=== PATIENT | female | born 1985 | race Caucasian/White ===

== ENCOUNTER 2016-05-07 03:23 | Emergency (ER) | payer MEDICAID, OTHER ==
[2016-05-07] MEDS ORDERED: diphenhydrAMINE HCl 50 MG/ML 1 ML VIAL ONE (04:01)
[2016-05-07] MEDS ORDERED: methylPREDNISolone Sod Succ/PF 125 MG/2 ML VIAL ONE (04:01)
[2016-05-07] MEDS ORDERED: Famotidine 20 MG TAB ONE (04:01)
[2016-05-07] MEDS ORDERED: Famotidine In NaCl 20 mg/50 ml Premix Bag ONE ×2 (04:02→04:04)
[2016-05-07 04:06] LABS: #Basophils 0.1 thou/uL (0.0-0.2); #Eosinphils 0.2 thou/uL (0.0-0.7); #Lymphocytes 2.2 thou/uL (1.20-3.40); #Monocytes 0.7 thou/uL (0.11-0.59); #Neutrophils 4.9 thou/uL (1.40-6.50); %Basophils 1.2 % (0.0-1.0); %Eosinophils 2.5 % (0.0-10.0); Red Blood Cell (RBC) Count 4.32 mill/uL (4.20-5.40); White Blood Cell (WBC) Count 8.1 thou/uL (4.8-10.8)
[2016-05-07 04:20] LABS: Anion Gap 12 mmol/L (10-20); BUN (Urea Nitrogen) 18 mg/dL (7.0-18.7); Calc. Creatinine Clearance 0 mL/min (70-130); Calcium 9.4 mg/dL (7.8-10.44); Carbon Dioxide 26 mmol/L (22-29); Chloride 105 mmol/L (98-107); Estimated GFR-MDRD Greater than 90
--- NOTE | 2016-05-07 07:22 | ERRECORD ---
[facility] EMERGENCY RECORD PAST MEDICAL HISTORY (03:42 KSPL) MEDICAL HISTORY: asthma, HTN. FEMALE SURGICAL HISTORY: Surgical history of section, . PSYCHIATRIC HISTORY: No previous psychiatric history, No previous psychiatric history. SOCIAL HISTORY: Patient denies alcohol use, Patient denies drug use, Patient has no smoking history, Patient denies alcohol use, Patient denies drug use, Patient is a former tobacco user, smoked cigarettes, Patient quit smoking less than 10 years ago, Lives at home, with family. KNOWN ALLERGIES codeine sulfate latex gloves Penicillins CURRENT MEDICATIONS (03:33 KSPL) lisinopril: TABLET : Strength - 10 mg : ORAL Patient Dose: once a day.per pt. VITAL SIGNS VITAL SIGNS: BP: 131/84, Pulse: 96, Resp: 18 (Non-Labored), Temp: 98 (Oral), Pain: 0, O2 sat: 100 on Room Air, Time: 05/07/2016 03:31. (03:31 KSPL) BP: 113/57, Pulse: 71, Resp: 17 (Non-Labored), Pain: 0, O2 sat: 97 on Room Air, Time: 05/07/2016 04:31. (04:31 KSPL) BP: 94/46, Pulse: 67, Resp: 15 (Non-Labored), Pain: 0, O2 sat: 98 on Room Air, Time: 05/07/2016 05:15. (05:15 KSPL) BP: 91/45, Pulse: 66, Resp: 16 (Non-Labored), Pain: resting, O2 sat: 99 on Room Air, Time: 05/07/2016 06:00. (06:00 KSPL) BP: 116/63, Pulse: 68, Resp: 15, Pain: 0, O2 sat: 98 on Room Air, Time: 05/07/2016 06:45. (06:45 KMOR) BP: 113/69, Pulse: 77, Resp: 19 (Non-Labored), Pain: 0, O2 sat: 96 on Room Air, Time: 05/07/2016 07:00. (07:00 KSPL) Temp: 97.9 (Oral), Time: 05/07/2016 07:10. (07:10 KMOR) MEDICATION ADMINISTRATION SUMMARY Drug Name: famotidine (PF), Dose Ordered: 20 mg, Route: IV Push, Status: Given, Time: 04:20 05/07/2016, Drug Name: methylPREDNISolone sodium succ injection, Dose Ordered: 125 mg, Route: IV Push, Status: Given, Time: 04:19 05/07/2016, Drug Name: diphenhydrAMINE injection, Dose Ordered: 25 mg, Route: IV Push, Status: Given, Time: 04:18 05/07/2016, Detailed record available in Medication Service section. PROBLEM LIST No recorded problems &a-1R&a+25V*p+0X*[id number]*c202B*c15G*c2P*p-0X&a-25V&a+1R Name: Emmie Reece : 1985 F30 MedRec: [id number] AcctNum: [id number] Prepared: MonMay 10, 2016 09:28 by Interface Page [address] [facility] EMERGENCY RECORD DIAGNOSIS (07:08 MBRI) FINAL: PRIMARY: sensation of swelling in the throat, ADDITIONAL: GERD WITH ESOPHAGITIS. PRESCRIPTION (07:07 MBRI) Benadryl oral: CAPSULE (HARD, SOFT, ETC.) : 25 mg : ORAL : Quantity: 1-2 Unit: tab(s) Route: ORAL Schedule: every 6 hours PRN Dispense: 30 May substitute. Refills: No Refills . NOTES: No refills. predniSONE oral: TABLET : 20 mg : ORAL : Quantity: 3 Unit: tab(s) Route: ORAL Schedule: once a day Dispense: 12 May substitute. Refills: No Refills . NOTES: ^s=No refills No refills. Zantac oral: TABLET : 150 mg : ORAL : Quantity: 1 Unit: tab(s) Route: ORAL Schedule: once a day Dispense: 30 May substitute. Refills: No Refills . NOTES: ^s=^s=No refills No refills No refills. DISPOSITION PATIENT: Disposition Type: Discharge, Disposition: *Discharge Home, Condition: Improved. (07:04 MBRI) Patient left the department. (07:16 MERCEDEZ) Rios: KMOR=CAESAR Lopez, Jess KSPL=CAESAR Walker, Jennifer MBRI=DO Kendrick Matthew &a-1R&a+25V*p+0X*z9220H*c202B*c15G*c2P*p-0X&a-25V&a+1R Name: Emmie Reece : 1985 F30 MedRec: [id number] AcctNum: [id number] Prepared: Sukhdev May 10, 2016 09:28 by Interface Page 2 of 2 pMD MTDD
--- NOTE | 2016-05-07 07:28 | PICIS ---
[facility] EMERGENCY RECORD TRIAGE ([facility] May 07, 2016 03:32 KSPL) TRIAGE NOTES: pt states feels like something is stuck in her throat, hard to breathe when she lays down and "just feels like something isn't right" started this evening. C/O heart burn x 3 months ago. ([facility] May 07, 2016 03:32 KSPL) PATIENT: NAME: Emmie Reece, AGE: 30, GENDER: female, : [facility] 1985, TIME OF GREET: [facility] May 07, 2016 03:23, PREFERRED LANGUAGE: Danish, ETHNICITY: Not or , ECODE BILLING MAP: [facility], SSN: [id number], Zip Code: [address], KG WEIGHT: 81.19 (est.), PHONE: , , , PERSON ID: [id number], PAYMENT: [facility] Medicaid, PCP: NAV Mayorga Kimberly. ([facility] May 07, 2016 03:32 KSPL) COMPLAINT: Throat Pain. ([facility] May 07, 2016 03:32 KSPL) ADMISSION: URGENCY: 3 Urgent, ADMISSION SOURCE: Home, TRANSPORT: CAR, BED: TRIAGE. ([facility] May 07, 2016 03:32 KSPL) IMMUNIZATIONS: Flu vaccine not up to date, Tetanus immunization up to date, Date of immunization: 2016. (03:42 KSPL) SIRS SCORING: Heart Rate 55-109 (0), Temp range 96.8-101.1 (0), respiratory rate 12-24 (0), Mental Status altered: no (0), Infection or Suspected Infection: No. (03:42 KSPL) TRIAGE SCREENING: Patient denies suicidal ideation, Patient denies presence of domestic violence. (03:42 KSPL) LMP: Last menstrual period: 04/12/16. (03:42 KSPL) TREATMENTS IN PROGRESS: Treatments given Prehospital: none. (03:42 KSPL) PROVIDERS: TRIAGE NURSE: Jennifer Walker RN. ([facility] May 07, 2016 03:32 KSPL) VITAL SIGNS: BP 131/84, Pulse 96, Resp 18, (Non-Labored), Temp 98, (Oral), Pain 0, O2 Sat 100, on Room Air, Time 05/07/2016 03:31. (03:31 KSPL) PREVIOUS VISIT ALLERGIES: codeine sulfate, latex gloves, Penicillins. (Sat May 07, 2016 03:32 KSPL) codeine sulfate, latex gloves, Penicillins. (03:42 KSPL) KNOWN ALLERGIES codeine sulfate latex gloves Penicillins CURRENT MEDICATIONS (03:33 KSPL) lisinopril: TABLET : Strength - 10 mg : ORAL Patient Dose: once a day.per pt. VITAL SIGNS VITAL SIGNS: BP: 131/84, Pulse: 96, Resp: 18 (Non-Labored), Temp: 98 (Oral), Pain: 0, O2 sat: 100 on Room Air, Time: 05/07/2016 03:31. (03:31 KSPL) BP: 113/57, Pulse: 71, Resp: 17 (Non-Labored), Pain: 0, O2 sat: 97 on &a-1R&a+25V*p+0X*j8874L*c202B*c15G*c2P*p-0X&a-25V&a+1R Name: Emmie Reece : 1985 F30 MedRec: [id number] AcctNum: [id number] Prepared: Sukhdev May 10, 2016 09:28 by Interface Page 1 of 9 pMD [facility] EMERGENCY RECORD Room Air, Time: 05/07/2016 04:31. (04:31 KSPL) BP: 94/46, Pulse: 67, Resp: 15 (Non-Labored), Pain: 0, O2 sat: 98 on Room Air, Time: 05/07/2016 05:15. (05:15 KSPL) BP: 91/45, Pulse: 66, Resp: 16 (Non-Labored), Pain: resting, O2 sat: 99 on Room Air, Time: 05/07/2016 06:00. (06:00 KSPL) BP: 116/63, Pulse: 68, Resp: 15, Pain: 0, O2 sat: 98 on Room Air, Time: 05/07/2016 06:45. (06:45 KMOR) BP: 113/69, Pulse: 77, Resp: 19 (Non-Labored), Pain: 0, O2 sat: 96 on Room Air, Time: 05/07/2016 07:00. (07:00 KSPL) Temp: 97.9 (Oral), Time: 05/07/2016 07:10. (07:10 KMOR) NURSING ASSESSMENT: RESPIRATORY /CHEST (03:35 KSPL) CONSTITUTIONAL: Complex assessment performed, Patient arrives ambulatory, Gait steady, History obtained from patient, Patient appears comfortable, Patient cooperative, Patient alert, Oriented to person, place and time, Skin warm, Skin dry, Skin normal in color, Mucous membranes pink, Mucous membranes moist, Patient is well-groomed, Patient complains of throat pain and SOB. PAIN: pressure pain, Patient rates pain as 0 out of 10, pt states she feels like "someone is choking me". RESPIRATORY/CHEST: Breath sounds clear, Respiratory assessment findings include respiratory effort easy, Respirations regular, Conversing normally, Neck and chest exam findings include trachea midline, Chest expansion equal, Chest movement symmetrical, no signs of distress, no cyanosis, no jugular vein distension, no associated cough noted, no associated fever. ENT: Mouth and throat assessment findings include mouth inspection normal, Uvula normal, Tonsils normal, Mucous membranes pink, and moist, Able to swallow, Speech normal, Notes: able to swallow but says when she swallows "it feels like it wants to come back up". SAFETY: Side rails up, Cart/Stretcher in lowest position, Family at bedside, Call light within reach, Hospital ID band on, Patient in view of the nursing station. NURSING PROCEDURE: TURNER MACHINE OPERATOR (03:33 KSPL) PATIENT IDENTIFIER: Patient actively involved in identification process, Patient's identity verified by patient stating name, Patient's identity verified by patient stating date. TURNER MACHINE OPERATOR: Cardiac monitoring indicated for facilitate dx, Patient placed on rn cardiac rehab, Heart rate: 96, Patient placed on non-invasive blood pressure monitor, with disposable blood pressure cuff applied, Patient placed on continuous pulse oximetry, Adult/pediatric oxisensor applied. SAFETY: Side rails up, Cart/Stretcher in lowest position, Call light within reach, Hospital ID band on, Patient in view of the nursing station. NURSING PROCEDURE: DISCHARGE NOTE (07:14 KSPL) DISCHARGE: Patient discharged to home, ambulating without &a-1R&a+25V*p+0X*r8622E*c202B*c15G*c2P*p-0X&a-25V&a+1R Name: Emmie Reece : 1985 F30 MedRec: [id number] AcctNum: [id number] Prepared: MonMay 10, 2016 09:28 by Interface Page 2 of 9 pMD [facility] EMERGENCY RECORD assistance, family driving, accompanied by //partner, Summary of Care printed/ provided, Patient requested and was provided an electronic copy of Discharge Instructions, Transition record given to patient, Discharge instructions given to patient, Simple or moderate discharge teaching performed, Prescriptions given and instructions on side effects given, Name of prescription(s) given: zantac, prednisone, benadryl, Medication reconciliation form given, Above person(s) verbalized understanding of discharge instructions and follow-up care, Forensic Manager used, Patient treated and evaluated by physician. BELONGINGS: Belongings and valuables with patient at time of discharge include:, Belongings remain with patient, Valuables remain with patient. SAFETY: Side rails up, Cart/Stretcher in lowest position, Call light within reach, Hospital ID band on, Patient in view of the nursing station. NURSING PROCEDURE: IV PATIENT IDENITIFIER: Patient actively involved in identification process, Patient's identity verified by patient stating name, Patient's identity verified by patient stating date. (03:45 CHOB) IV SITE 1: IV therapy indicated for hydration, IV therapy indicated for medication administration, IV established, to the left antecubital, using a 20 gauge catheter, in one attempt, Saline lock established, Flushed with normal saline (mls): 10, Labs drawn at time of placement, labeled in the presence of the patient and sent to lab. (03:45 CHOB) FOLLOW-UP SITE 1: After procedure, sterile transparent dressing applied. (03:45 CHOB) IV discontinued, due to patient being discharged, catheter intact. (07:10 KMOR) NOTES: Patient tolerated procedure well. (07:10 KMOR) SAFETY: Side rails up, Cart/Stretcher in lowest position, Call light within reach, Hospital ID band on. (03:45 CHOB) NURSING PROCEDURE: NURSE NOTES NURSES NOTES: Notes: ERMD at bedside. (03:36 KSPL) Notes: ERMD at bedside, wants to observe pt. awaiting discharge orders. (05:20 KSPL) Notes: Pt resting quietly with eyes closed, no s/sx of distress noted, respirations even and non labored. Call light in reach. (06:17 KSPL) Notes: Patient resting back in bed, RR Even and unlabored. NAD. (06:55 KMOR) Notes: Dr. Kendrick in to review results with patient. (06:58 KMOR) NURSING PROCEDURE: TRANSPORT TO TESTS PATIENT IDENTIFIER: Patient actively involved in identification &a-1R&a+25V*p+0X*y3425B*c202B*c15G*c2P*p-0X&a-25V&a+1R Name: Emmie Reece : 1985 F30 MedRec: [id number] AcctNum: [id number] Prepared: MonMay 10, 2016 09:28 by Interface Page 3 of 9 pMD [facility] EMERGENCY RECORD process, Patient's identity verified by patient stating name, Patient's identity verified by patient stating date. (03:54 KSPL) TRANSPORT TO TESTS: Transport indicated to facilitate diagnosis, Patient transported to x-ray, ambulatory, Accompanied by x-ray donor center technician. (03:54 KSPL) FOLLOW-UP: After procedure, patient returned to emergency department, Notes: pt back in bed and hooked back up to monitor. (03:58 KSPL) NURSING PROCEDURE: URINE COLLECTION (03:40 CHOB) PATIENT IDENTIFIER: Patient actively involved in identification process, Patient's identity verified by patient stating name, Patient's identity verified by patient stating date. URINE COLLECTION FEMALE: Urine collected by mid-stream clean catch, urine yellow in color, and clear. SAFETY: Side rails up, Cart/Stretcher in lowest position, Call light within reach, Hospital ID band on. ORDER DETAILS Order Name: Basic Metabolic Panel, Status: Active, Time: 03:39 05/07/2016, User: CALLY, - Ordered for: DO Kendrick Matthew, - Entered by: DO Kendrick Matthew - Sat May 07, 2016 03:39, - Quantity: 1, Order Name: CBC with Differential, Status: Active, Time: 03:39 05/07/2016, User: CALLY, - Ordered for: DO Kendrick Matthew, - Entered by: DO Kendrick Matthew - Angel May 07, 2016 03:39, - Quantity: 1, Order Name: Test, Serum (BHCG), Status: Canceled, Time: 04:09 05/07/2016, User: System, - Ordered for: DO Kendrick Matthew, - Entered by: DO Kendrick Matthew - Angel May 07, 2016 03:39, - Reason for Cancel: dr request, - Quantity: 1, Order Name: Test, Urine (BHCG), Status: Active, Time: 03:55 05/07/2016, User: DARSHANA, - Ordered for: DO Kendrick Matthew, - Entered by: CAESAR Walker Kristi - Sat May 07, 2016 03:55, - Quantity: 1, Order Name: SALINE LOCK, Status: Done, Time: 03:52 05/07/2016, User: CHOB, - Ordered for: DO Kendrick Matthew, - Entered by: DO Kendrick Matthew - Angel May 07, 2016 03:39, - Quantity: 1, Order Name: XR Neck Soft Tissue, Status: Active, Time: 03:41 05/07/2016, User: CALLY, - Ordered for: DO Kendrick Matthew, &a-1R&a+25V*p+0X*t3913K*c202B*c15G*c2P*p-0X&a-25V&a+1R Name: Emmie Reece : 1985 F30 MedRec: [id number] AcctNum: [id number] Prepared: MonMay 10, 2016 09:28 by Interface Page 4 of 9 pMD [facility] EMERGENCY RECORD - Entered by: DO Kendrick Matthew - Sat May 07, 2016 03:41, - Quantity: 1. MEDICATION ADMINISTRATION SUMMARY Drug Name: famotidine (PF), Dose Ordered: 20 mg, Route: IV Push, Status: Given, Time: 04:20 05/07/2016, Drug Name: methylPREDNISolone sodium succ injection, Dose Ordered: 125 mg, Route: IV Push, Status: Given, Time: 04:19 05/07/2016, Drug Name: diphenhydrAMINE injection, Dose Ordered: 25 mg, Route: IV Push, Status: Given, Time: 04:18 05/07/2016, Detailed record available in Medication Service section. MEDICATION SERVICE diphenhydrAMINE injection: Order: diphenhydrAMINE injection (diphenhydramine HCl) - Dose: 25 mg : IV Push Ordered by: Jameson Kendrick DO Entered by: Jameson Kendrick DO Sat May 07, 2016 03:42 , Acknowledged by: Jennifer Walker RN Sat May 07, 2016 03:56 Documented as given by: Jennifer Walker RN Sat May 07, 2016 04:18 Patient, Medication, Dose, Route and Time verified prior to administration. Amount given: 25 mg, IV SITE #1 IVP, initial medication, Slowly, Awake and alert- acceptable, Connections checked prior to administration, Line traced prior to administration, Catheter placement confirmed via flush prior to administration, IV site without signs or symptoms of infiltration during medication administration, No swelling during administration, No drainage during administration, IV flushed after administration, Correct patient, time, route, dose and medication confirmed prior to administration, Patient advised of actions and side-effects prior to administration, Allergies confirmed and medications reviewed prior to administration, Patient in position of comfort, Side rails up, Cart in lowest position, Call light in reach. : Follow Up : Response assessment performed, No signs or symptoms of allergic reaction noted, _IV SITE #1:_, Advised not to ambulate without assistance, Patient in position of comfort, Side rails up, Cart in lowest position, Call light in reach, Pt laying supine in bed with HOB elevated slightly, pt resting quietly with eyes closed, respirations even and non labored. No s/sx of distress noted. (05:09 KSPL) famotidine (PF): Order: famotidine (PF) (famotidine/preservative free) - Dose: 20 mg : IV Push Ordered by: Jameson Kendrick DO Entered by: Jameson Kendrick DO Sat May 07, 2016 03:42 , Acknowledged by: Jennifer Walker RN Sat May 07, 2016 03:56. : Follow Up : Response assessment performed, No signs or symptoms of allergic reaction noted, Site inspection shows, No swelling at administration site, No drainage at administration site, No bleeding at site, No bruising noted at site, _IV SITE #1:_, &a-1R&a+25V*p+0X*z3908R*c202B*c15G*c2P*p-0X&a-25V&a+1R Name: Emmie Reece : 1985 F30 MedRec: [id number] AcctNum: [id number] Prepared: MonMay 10, 2016 09:28 by Interface Page 5 of 9 pMD [facility] EMERGENCY RECORD Medication infusion discontinued, on Sat May 07, 2016 04:48, 30 minutes, ., Total amount infused: 50 mls, IV Line flushed after administration, Advised not to ambulate without assistance, Patient in position of comfort, Side rails up, Cart in lowest position, Call light in reach, IVPB given per Dr. Kendrick verbal order, 20mg Famotidine premixed in 50ml iso-osmotic bag. (04:48 KSPL) famotidine (PF): Order: famotidine (PF) (famotidine/preservative free) - Dose: 20 mg : IV Push Ordered by: Jameson Kendrick DO Entered by: Jameson Kendrick DO [facility] May 07, 2016 03:42 , Acknowledged by: Jennifer Walker RN [facility] May 07, 2016 03:57 Documented as given by: Jennifer Walker RN [facility] May 07, 2016 04:20 Patient, Medication, Dose, Route and Time verified prior to administration. Amount given: 20 mg, IV SITE #1 IVPB or drip, subsequent infusion, Premixed, via pump tubing, on an IV pump, at 100 ml/hr, Connections checked prior to administration, Line traced prior to administration, Catheter placement confirmed via flush prior to administration, IV site without signs or symptoms of infiltration during medication administration, No swelling during administration, No drainage during administration, IV flushed after administration, Correct patient, time, route, dose and medication confirmed prior to administration, Patient advised of actions and side-effects prior to administration, Allergies confirmed and medications reviewed prior to administration, Patient in position of comfort, Side rails up, Cart in lowest position, Call light in reach, IVPB given after verbal order from Dr. Kendrick received, due to 20mg Pepcid IVP unavailable. methylPREDNISolone sodium succ injection: Order: methylPREDNISolone sodium succ injection (methylprednisolone sod succ) - Dose: 125 mg : IV Push Ordered by: Jameson Kendrick DO Entered by: Jameson Kendrick DO Sat May 07, 2016 03:42 , Acknowledged by: Jennifer Walker RN Sat May 07, 2016 03:56 Documented as given by: Jennifer Walker RN Sat May 07, 2016 04:19 Patient, Medication, Dose, Route and Time verified prior to administration. Amount given: 125 mg, IV SITE #1 IVP, subsequent different medication, Slowly, Connections checked prior to administration, Line traced prior to administration, Catheter placement confirmed via flush prior to administration, IV site without signs or symptoms of infiltration during medication administration, No swelling during administration, No drainage during administration, IV flushed after administration, Correct patient, time, route, dose and medication confirmed prior to administration, Patient advised of actions and side-effects prior to administration, Allergies confirmed and medications reviewed prior to administration, Patient in position of comfort, Side rails up, Cart in lowest position, Call light in reach. : Follow Up : Response assessment performed, No signs or symptoms of allergic reaction noted, _IV SITE #1:_, Advised not to ambulate without assistance, Patient in position of comfort, Side &a-1R&a+25V*p+0X*q0172Y*c202B*c15G*c2P*p-0X&a-25V&a+1R Name: Emmie Reece : 1985 F30 MedRec: [id number] AcctNum: [id number] Prepared: MonMay 10, 2016 09:28 by Interface Page 6 of 9 pMD [facility] EMERGENCY RECORD rails up, Cart in lowest position, Call light in reach, pt states "the feeling in my throat feels calm, I can still feel it when I swallow, but not as bad". (05:00 KSPL) PAST MEDICAL HISTORY (03:42 KSPL) MEDICAL HISTORY: asthma, HTN. FEMALE SURGICAL HISTORY: Surgical history of section, . PSYCHIATRIC HISTORY: No previous psychiatric history, No previous psychiatric history. SOCIAL HISTORY: Patient denies alcohol use, Patient denies drug use, Patient has no smoking history, Patient denies alcohol use, Patient denies drug use, Patient is a former tobacco user, smoked cigarettes, Patient quit smoking less than 10 years ago, Lives at home, with family. EVENTS TRANSFER: Triage to Emergency Triage. ([facility] May 07, 2016 03:32 KSPL) Emergency Triage to Emergency Room -02. (03:38 CHOB) Removed from Emergency Emergency Room -02. (07:16 KMOR) PROBLEM LIST No recorded problems DIAGNOSIS (07:08 MBRI) FINAL: PRIMARY: sensation of swelling in the throat, ADDITIONAL: GERD WITH ESOPHAGITIS. DISPOSITION PATIENT: Disposition Type: Discharge, Disposition: *Discharge Home, Condition: Improved. (07:04 MBRI) Patient left the department. (07:16 KMOR) INSTRUCTION (07:08 MBRI) DISCHARGE: ESOPHAGITIS REFLUX ADULT. FOLLOWUP: [facility]org[facility], [facility], [address] [place] [id number], , Follow up with Primary Care Physician in 7 days. SPECIAL: Please return for any further issues or concerns, we would be happy to see you. We hope you feel better soon. Follow-up with your PCP Tylenol for Pain. PRESCRIPTION (07:07 MBRI) Benadryl oral: CAPSULE (HARD, SOFT, ETC.) : 25 mg : ORAL : Quantity: 1-2 Unit: tab(s) Route: ORAL Schedule: every 6 hours PRN Dispense: 30 May substitute. Refills: No Refills . &a-1R&a+25V*p+0X*z4861L*c202B*c15G*c2P*p-0X&a-25V&a+1R Name: Emmie Reece : 1985 F30 MedRec: [id number] AcctNum: [id number] Prepared: MonMay 10, 2016 09:28 by Interface Page 7 of 9 pMD [facility] EMERGENCY RECORD NOTES: No refills. predniSONE oral: TABLET : 20 mg : ORAL : Quantity: 3 Unit: tab(s) Route: ORAL Schedule: once a day Dispense: 12 May substitute. Refills: No Refills . NOTES: ^s=No refills No refills. Zantac oral: TABLET : 150 mg : ORAL : Quantity: 1 Unit: tab(s) Route: ORAL Schedule: once a day Dispense: 30 May substitute. Refills: No Refills . NOTES: ^s=^s=No refills No refills No refills. IMAGING *DISCHARGE INSTRUCTIONS RECEIPT: Image captured from scanner. (07:23 KMOR) Page 2 added. Image captured from scanner. (07:23 KMOR) MONITOR STRIPS: Image captured from scanner. (07:23 KMOR) *SUPPLY CHARGE SHEET: Image captured from scanner. (07:24 KMOR) ADMIN DIGITAL SIGNATURE: CAESAR Lopez, Jess. (07:25 KMOR) DO Kendrick Matthew. (MonMay 10, 2016 09:20 MBRI) RESULTS (05:06 MBRI) LABORATORY: Basic Metabolic Panel Collection DT: [facility] May 07, 2016 03:55, Sodium 139 mmol/L, Range (136-145), Potassium 3.9 mmol/L, Range (3.5-5.1), Chloride 105 mmol/L, Range (98-107), Carbon Dioxide 26 mmol/L, Range (22-29), Anion Gap 12 mmol/L, Range (10-20), BUN (Urea Nitrogen) 18 mg/dL, Range (7.0-18.7), Creatinine 0.74 mg/dL, Range (0.6-1.1), Estimated GFR-MDRD Greater than 90 , Reference Range for Estimated GFR: Greater than 90, mL/min/1.73 m2 NOTE: The MDRD equation has not been validated for use, with the elderly (over 70 years of age), women, patients with, serious comorbid condition or persons with extremes of body size, muscle, mass, or nutritional status. , Glucose 102 mg/dL, Range (70-105), Calcium 9.4 mg/dL, Range (7.8-10.44). CBC with Differential Collection DT: [facility] May 07, 2016 03:55, White Blood Cell (WBC) Count 8.1 thou/uL, Range (4.8-10.8), Red Blood Cell (RBC) Count 4.32 mill/uL, Range (4.20-5.40), Hemoglobin 12.9 g/dL, Range (12.0-16.0), Hematocrit 38.0 %, Range (36.0-47.0), &a-1R&a+25V*p+0X*l1447Y*c202B*c15G*c2P*p-0X&a-25V&a+1R Name: Emmie Reece : 1985 F30 MedRec: [id number] AcctNum: [id number] Prepared: MonMay 10, 2016 09:28 by Interface Page 8 of 9 pMD [facility] EMERGENCY RECORD Mean Corpuscular Volume 88.0 fl, Range (81.0-99.0), Mean Corpuscular Hemoglobin 29.8 pg, Range (27.0-31.0), Mean Corpuscular HGB CONC 33.9 g/dL, Range (32.0-36.0), RBC Distribution Width 11.6 %, Range (11.5-14.5), Platelet Count 230 thou/uL, Range (130-400), *Mean Platelet Volume 7.0 - L fL, Range (7.4-10.4), %Neutrophils 60.8 %, Range (42.0-75.0), %Lymphocytes 27.5 %, Range (21.0-51.0), %Monocytes 8.0 %, Range (0.0-10.0), %Eosinophils 2.5 %, Range (0.0-10.0), *%Basophils 1.2 - H %, Range (0.0-1.0), #Neutrophils 4.9 thou/uL, Range (1.40-6.50), #Lymphocytes 2.2 thou/uL, Range (1.20-3.40), *#Monocytes 0.7 - H thou/uL, Range (0.11-0.59), #Eosinphils 0.2 thou/uL, Range (0.0-0.7), #Basophils 0.1 thou/uL, Range (0.0-0.2). Test, Urine (BHCG) Collection DT: MonMay 07, 2016 04:00, Test - Urine (BHCG) NEGATIVE , Range (NEGATIVE), Method of sensitivity- Indeterminant: results should be repeated, after 48 hours. Positive: results may be detected as early as 4-5 days before a first missed menses. Elimination of BHCG-, Elimination following first trimester D&C: 29-44 Days , Elimination following term : 8-24 Days , Specific [place] 1.007 , Range (1.002-1.036), A dilute urine specimen may, not contain life assurance representative levels of hCG. If is still, suspected, a first morning urine specimen OR a random blood specimen should, be obtained from the patient 48-72 hours later and re-tested. , . Rios: AARON=CAESAR Nicole, Rosa NEWSOME=CAESAR Lopez, Jess GILLILAND=CAESAR Walker, Jennifer ALAMO=DO Kendrick Matthew &a-1R&a+25V*p+0X*o4349P*c202B*c15G*c2P*p-0X&a-25V&a+1R Name: Emmie Reece : 1985 F30 MedRec: [id number] AcctNum: [id number] Prepared: MonMay 10, 2016 09:28 by Interface Page 9 of 9 pMD [facility] MEDICATION RECONCILIATION You were seen in the Emergency Department on: MonMay 07, 2016 KNOWN ALLERGIES codeine sulfate latex gloves Penicillins MEDICATIONS GIVEN WHILE IN THE EMERGENCY DEPARTMENT diphenhydrAMINE injection (diphenhydramine HCl) - Dose: 25 milligram(s) : IV Push famotidine (PF) (famotidine/preservative free) - Dose: 20 milligram(s) : IV Push methylPREDNISolone sodium succ injection (methylprednisolone sod succ) - Dose: 125 milligram(s) : IV Push HOME MEDICATIONS CONTINUE PRESCRIBED lisinopril : TABLET : Strength - 10 mg : ORAL Continue as prescribed Patient had been taking: once a day. Comment: per pt. Notes from the emergency department Reviewed with patient PRESCRIPTIONS (3) Printed (3) Benadryl oral : CAPSULE (HARD, SOFT, ETC.) : 25 mg : ORAL Quantity: 1-2, Unit: tab(s), Route: ORAL, Schedule: every 6 hours PRN, Dispense: 30 predniSONE oral : TABLET : 20 mg : ORAL Quantity: 3, Unit: tab(s), Route: ORAL, Schedule: once a day, Dispense: 12 &a-1R&a+25V*p+0X*w4095E*c202B*c15G*c2P*p-0X&a-25V&a+1R Name: Clifton Reeceher : 1985 F30 MedRec: [id number] AcctNum: [id number] Prepared: MonMay 10, 2016 09:28 by Interface pMD KRISTEN
--- NOTE | 2016-05-07 08:40 | RAD ---
SOFT TISSUE NECK: DATE: 05/07/16. FINDINGS: Two views are provided in the AP and lateral projections. The soft tissues show no thickening. The epiglottis is not enlarged. There is some mild straighten ing of the cervical spine which could be due to spasm. There is a small triangular bony density seen just anterior to the superior corner of the C5 vertebr a. The anterior superior corner of C5 is slightly deformed and this density somewhat has the appear ance of a small bone spur or fragment from the vertebra that was previously . Given the sl ight deformity of the anterior superior corner of C5, that seems more likely than an actual opaque f oreign body. The soft tissues in this location do not appear swollen in any way. It seems a little more likely that this is a longstanding finding, rather than an acute one. Depending upon the aaron ent's clinical history and progress, one still may wish to refer her to an ENT physician for a direc t visualization in the area. Otherwise, the exam appears normal. IMPRESSION: 1. Loss of the normal cervical lordosis, possibly due to muscle spasm. 2. Small bony-appearing triangular density just anterior to the anterior superior corner of C5. Th e corner itself seems slightly deformed and the structure in question does resemble a small osteophy te, either ununited or avulsed. It seems more likely this than a foreign body. Further followup zhen y be needed depending upon her progress and symptoms. See discussion above. CODE T POS: HOME
== END 2016-05-07 07:14 | disposition home or self-care (01) ==
LOC: BURERS 03:23
DX: K21.0 Gastro-esophageal reflux disease with esophagitis (principal); J45.909 Unspecified asthma, uncomplicated; I10 Essential (primary) hypertension; Z87.891 Personal history of nicotine dependence; Z79.899 Other long term (current) drug therapy
CPT/HCPCS: 70360; 80048; 81025; 85025; 96365; 96375; J1200; J2930

== ENCOUNTER 2016-05-25 11:40 | Outpatient (CLI) | payer OTHER | END 2016-05-25 11:41 | disposition home or self-care (01) | LOC: HPCALD 11:40 | PROVIDERS: ATTEND Physician Assistant | DX: Z01.419 Encounter for gynecological examination (general) (routine) without abnormal findings (principal) | CPT/HCPCS: 88142; G0123 ==

== ENCOUNTER 2016-06-01 16:55 | Outpatient (CLI) | payer OTHER | END 2016-06-01 16:56 | LOC: HPCALD 16:55 | PROVIDERS: ATTEND Physician Assistant | DX: Z00.00 Encounter for general adult medical examination without abnormal findings (principal) | CPT/HCPCS: 87480; 87491; 87510; 87591; 87660 ==

== ENCOUNTER 2016-06-07 17:45 | Emergency (ER) | payer OTHER | END 2016-06-07 18:07 | disposition home or self-care (01) | LOC: BURERS 17:45 | DX: K59.00 Constipation, unspecified (principal); I10 Essential (primary) hypertension; J45.909 Unspecified asthma, uncomplicated; Z87.891 Personal history of nicotine dependence; Z79.899 Other long term (current) drug therapy | CPT/HCPCS: 99283 ==

== ENCOUNTER 2016-06-23 09:37 | Outpatient (CLI) | payer OTHER ==
[2016-06-23 11:51] LABS: ALT (SGPT) 13 U/L (0-55); AST (SGOT) 14 U/L (5-34); Albumin 4.4 g/dL (3.5-5.0); Alkaline Phosphatase 77 U/L (40-150); Bilirubin, Direct 0.3 mg/dL (0.1-0.3); Bilirubin, Total 0.9 mg/dL (0.2-1.2); Lipase 15 U/L (8-78); Protein, Total 7.4 g/dL (6.0-8.3)
== END 2016-06-23 09:38 | disposition home or self-care (01) ==
LOC: HPCALD 09:37
PROVIDERS: ATTEND Physician Assistant
DX: R10.11 Right upper quadrant pain (principal)
CPT/HCPCS: 36415; 80076; 83690

== ENCOUNTER 2016-06-24 08:29 | Outpatient (CLI) | payer OTHER ==
--- NOTE | 2016-06-24 21:14 | ULT ---
ABDOMINAL ULTRASOUND 06/24/16 Ultrasonography of the abdomen was performed for evaluation of right upper quadrant pain. The liver is mildly enlarged, measuring 17.3 cm in oblique sagittal length. Internally, no masses or dilated ducts were seen. The gallbladder contains no signs of stones or wall thickening. The common bile duct was borderline enlarged at 6 mm in width. The visible portions of the pancreas appeared n ormal. The right kidney was 11.4 cm in length and the left kidney was 11.3 cm. No mass or hydronephr osis was seen in either. The aorta and inferior vena cava were unremarkable. The spleen is upper nor mal in length at 13 cm. IMPRESSION: Borderline hepatic size. Borderline enlargement of the common bile duct without any abnormal finding s otherwise. POS: HOME
== END 2016-06-24 08:30 | disposition home or self-care (01) ==
LOC: BURULT 08:29
PROVIDERS: ATTEND Physician Assistant
DX: R10.11 Right upper quadrant pain (principal)
CPT/HCPCS: 76700

== ENCOUNTER 2016-06-28 16:43 | Emergency (ER) | payer OTHER ==
[~2016-06-28 16:43] MED LIST: Iopamidol 370 76% 100 ML VIAL ONE
[2016-06-28 17:23] LABS: #Basophils 0.1 thou/uL (0.0-0.2); #Eosinphils 0.2 thou/uL (0.0-0.7); #Lymphocytes 2.7 thou/uL (1.20-3.40); #Monocytes 0.7 thou/uL (0.11-0.59); #Neutrophils 4.5 thou/uL (1.40-6.50); %Basophils 0.9 % (0.0-1.0); %Eosinophils 2.8 % (0.0-10.0); %Lymphocytes 33.1 % (21.0-51.0); %Monocytes 8.7 % (0.0-10.0); %Neutrophils 54.6 % (42.0-75.0); Hemoglobin 13.3 g/dL (12.0-16.0); Mean Corpuscular HGB CONC 34.3 g/dL (32.0-36.0); Mean Corpuscular Hemoglobin 31.5 pg (27.0-31.0); Mean Corpuscular Volume 91.8 fl (81.0-99.0); Mean Platelet Volume 7.9 fL (7.4-10.4); Platelet Count 231 thou/uL (130-400); RBC Distribution Width 11.3 % (11.5-14.5); Red Blood Cell (RBC) Count 4.23 mill/uL (4.20-5.40); White Blood Cell (WBC) Count 8.2 thou/uL (4.8-10.8)
[2016-06-28] MEDS ORDERED: Ketorolac Tromethamine 30 MG/ML VIAL ONE (17:23)
[2016-06-28] MEDS ORDERED: Famotidine In NaCl 20 mg/50 ml Premix Bag ONE (17:24)
[2016-06-28 17:28] LABS: Bilirubin Negative (Negative); Blood, Urine Negative (Negative); Clarity Clear (Clear); Glucose, Urine (Dipstick) Negative (Negative); Leukocyte Negative (Negative); Nitrite Negative (Negative); Protein, Urine (Dipstick) Negative (Neg-Trace); Specific Gravity, Urine 1.015 (1.005-1.030); Urobilinogen 0.2 mg/dL (0.2-1.0)
[2016-06-28 17:41] LABS: ALT (SGPT) 14 U/L (0-55); AST (SGOT) 14 U/L (5-34); Albumin 4.4 g/dL (3.5-5.0); Alkaline Phosphatase 80 U/L (40-150); Anion Gap 14 mmol/L (10-20); BUN (Urea Nitrogen) 15 mg/dL (7.0-18.7); Bilirubin, Total 0.5 mg/dL (0.2-1.2); Calc. Creatinine Clearance 0 mL/min (70-130); Calcium 9.5 mg/dL (7.8-10.44); Carbon Dioxide 24 mmol/L (22-29); Chloride 105 mmol/L (98-107); Estimated GFR-MDRD 89; Globulin 3.2 g/dL (2.4-3.5); Glucose 93 mg/dL (70-105); Lipase 22 U/L (8-78); Potassium 3.7 mmol/L (3.5-5.1); Protein, Total 7.6 g/dL (6.0-8.3); Sodium 139 mmol/L (136-145)
[2016-06-28] MEDS ORDERED: Sulfameth/Trimethoprim DS 800-160mg TAB ONE (19:12)
[2016-06-28] MEDS ORDERED: metroNIDAZOLE 250 MG TAB ONE (19:12)
--- NOTE | 2016-06-28 20:34 | CT ---
CT ABDOMEN AND PELVIS WITH CONTRAST 06/28/[address] of the abdomen and pelvis was performed using oral and IV contrast. Axial slices were acqu ired, then coronal and reconstructions were done. The lung bases are clear. The liver is a little generous in size but otherwise appears normal. There are no dilated intrahepatic ducts or signs of mass. The spleen is not enlarged. The pancreas was no rmal in appearance. The pancreatic head was seen well. I could not appreciate any dilation of bile d ucts on today's study. The kidneys and adrenal glands appear normal, as does the abdominal aorta. Attention is drawn to bowel which is abnormal. The right colon shows thickening of its wall in sever al places from cecum up to hepatic flexure. Infectious or inflammatory colitis is suspected. In olegario tion, there is a curious, almost bulls eye, appearance to the proximal jejunum in the left upper braeden drant that is reminiscent of an intussusception. Nevertheless, there is absolutely no dilation of edda wel here, and there is good flow of contrast through this area into distal small bowel. The remainde r of the small bowel was unremarkable. No free air or free fluid was seen in the abdomen. The append ix appears normal. CT of the pelvis showed no pelvic masses or pericolonic inflammatory changes. There may be a little thickening to the sigmoid colon but this is less certain. No free fluid of significance was seen. IMPRESSION: 1. Thickening of bowel wall in the right colon. Consider infectious or inflammatory causes. 2. Curious appearance to a loop or so of jejunum in the left upper quadrant that resembles an i ntussusception, but there is no obstruction, dilation of bowel, etc. GI referral recommended for all of the above. Findings discussed with Dr. Diaz at 1858 on 06/28/16. POS: HOME
[2016-06-29 17:52] LABS: HBCM Index 0.06 S/CO (0-0.79); Hep A IgM AB Non-Reactive (NonReactive); Hep A IgM S/CO 0.14 S/CO (0-0.79); Hep B Surf Ag Non-Reactive S/CO (NonReactive); Hep C IgG Ab Non-Reactive (NonReactive); Hep C Index 0.13 S/CO (0-0.79); Hepatitis B Core IGM Abs Non-Reactive (NonReactive)
== END 2016-06-28 19:33 | disposition home or self-care (01) ==
LOC: BURERS 16:43
DX: K52.9 Noninfective gastroenteritis and colitis, unspecified (principal); J45.909 Unspecified asthma, uncomplicated; I10 Essential (primary) hypertension; Z87.891 Personal history of nicotine dependence; Z79.899 Other long term (current) drug therapy
CPT/HCPCS: 74177; 80053; 80074; 81003; 83690; 85025; 96365; J1885

== ENCOUNTER 2016-07-09 18:11 | Emergency (ER) | payer OTHER ==
[2016-07-09] MEDS ORDERED: predniSONE 20 MG TAB ONE (19:45)
[2016-07-09] MEDS ORDERED: Azithromycin 250 MG TAB ONE (19:45)
--- NOTE | 2016-07-09 21:19 | RAD ---
CHEST TWO VIEWS 07/09/16 Comparison is made with a 03/10/10 study. The heart is normal in size. The upper lobes are clear. There is haziness in the right cardiophrenic angle, some of which may be a fat pad. I cannot exclude a small infiltrate there, but it is difficu lt to be certain. The lungs are otherwise clear. The trachea is midline. IMPRESSION: Equivocal haziness in the right base medially. Infection not excluded, though much of this density c ould be caused by a fat pad. POS: HOME
== END 2016-07-09 19:54 | disposition home or self-care (01) ==
LOC: BURERS 18:11
DX: J45.901 Unspecified asthma with (acute) exacerbation (principal); I10 Essential (primary) hypertension; Z87.891 Personal history of nicotine dependence; Z79.899 Other long term (current) drug therapy
CPT/HCPCS: 71020; 99284; J7506; J7620

== ENCOUNTER 2016-08-16 20:40 | Emergency (ER) | payer OTHER | END 2016-08-16 21:00 | disposition home or self-care (01) | LOC: BURERS 20:40 | DX: B34.9 Viral infection, unspecified (principal); I10 Essential (primary) hypertension; J45.909 Unspecified asthma, uncomplicated; Z87.891 Personal history of nicotine dependence | CPT/HCPCS: 99284 ==

== ENCOUNTER 2016-09-06 08:50 | Outpatient (CLI) | payer OTHER ==
--- NOTE | 2016-09-06 19:35 | RAD ---
CHEST TWO VIEWS: 09/06/16 The heart is normal in size. While there is no lobar consolidation, there is a little bit of promine nce of the perihilar markings which could be a component of bronchitis. The retrocardiac markings ar e slightly increased. A density in the right cardiophrenic angle is probably just a fat pad. The bon y structures appear normal. The trachea is midline. A few calcified granulomas are suggested in the lungs. IMPRESSION: Mild findings which could signify changes of bronchitis or other minimal infection. POS: HOME
== END 2016-09-06 08:51 | disposition home or self-care (01) ==
LOC: BURRAD 08:50
PROVIDERS: ATTEND Physician Assistant
DX: J02.9 Acute pharyngitis, unspecified (principal)
CPT/HCPCS: 71020

== ENCOUNTER 2016-09-15 16:54 | Emergency (ER) | payer OTHER ==
[2016-09-15] MEDS ORDERED: Ketorolac Tromethamine 30 MG/ML VIAL ONE (17:26)
[2016-09-15 17:29] LABS: Pregnancy Test - Urine (BHCG) Negative (Negative); Pregu Control Background? CLEAR/WHITE (CLR/WHITE); Pregu Control Bar Appear? YES (CONTROL BAR); Specific Gravity 1.007 (1.002-1.036)
[2016-09-15 17:33] LABS: #Basophils 0.1 thou/uL (0.0-0.2); #Eosinphils 0.1 thou/uL (0.0-0.7); #Lymphocytes 2.1 thou/uL (1.20-3.40); #Monocytes 0.6 thou/uL (0.11-0.59); %Basophils 0.9 % (0.0-1.0); %Eosinophils 1.2 % (0.0-10.0); %Lymphocytes 19.2 % (21.0-51.0); %Monocytes 5.5 % (0.0-10.0); %Neutrophils 73.3 % (42.0-75.0); Mean Corpuscular HGB CONC 34.2 g/dL (32.0-36.0); Mean Corpuscular Hemoglobin 30.1 pg (27.0-31.0); Mean Corpuscular Volume 87.9 fl (81.0-99.0); Mean Platelet Volume 7.1 fL (7.4-10.4); Platelet Count 231 thou/uL (130-400); RBC Distribution Width 11.7 % (11.5-14.5); White Blood Cell (WBC) Count 10.9 thou/uL (4.8-10.8)
[2016-09-15 17:34] LABS: Bilirubin Negative (Negative); Blood, Urine Moderate (Negative); Clarity Clear (Clear); Glucose, Urine (Dipstick) Negative (Negative); Leukocyte Negative (Negative); Nitrite Negative (Negative); Protein, Urine (Dipstick) Negative (Neg-Trace); Urobilinogen 0.2 mg/dL (0.2-1.0); pH, Urine 5.5 (5.0-9.0)
[2016-09-15 17:42] LABS: RBC/HPF 0-3 HPF (0-3); Specific Gravity, Urine 1.007 (1.002-1.036)
[2016-09-15 17:43] LABS: Bacteria/HPF None Seen HPF (None Seen); Crystals/HPF None Seen HPF (Negative); Hyaline Casts/LPF NONE SEEN LPF (0-3 Hyaline); Other Casts/LPF None Seen LPF (0-3 Hyaline); Oval Fat Bodies/HPF None Seen HPF (None Seen); Renal Epithelial None Seen HPF (0-3); Sperm/HPF None Seen HPF (None Seen); Squamous Epithelial 0-3 HPF (0-3); Transitional Epithelial NONE SEEN HPF (0-3); Trichomonas/HPF None Seen HPF (None Seen); WBC/HPF None Seen HPF (0-3); Yeast-All Forms None Seen HPF (None Seen)
[2016-09-15 17:51] LABS: ALT (SGPT) 14 U/L (8-55); AST (SGOT) 10 U/L (5-34); Albumin 3.9 g/dL (3.5-5.0); Alkaline Phosphatase 64 U/L (40-150); Anion Gap 12 mmol/L (10-20); BUN (Urea Nitrogen) 10 mg/dL (7.0-18.7); CK (CPK) 44 U/L (29-168); Calc. Creatinine Clearance 0 mL/min (70-130); Calcium 9.2 mg/dL (7.8-10.44); Carbon Dioxide 28 mmol/L (22-29); Chloride 103 mmol/L (98-107); Estimated GFR-MDRD Greater than 90; Glucose 81 mg/dL (70-105); Potassium 4.1 mmol/L (3.5-5.1); Protein, Total 6.9 g/dL (6.0-8.3); Sodium 139 mmol/L (136-145)
== END 2016-09-15 18:35 | disposition home or self-care (01) ==
LOC: BURERS 16:54
DX: M25.511 Pain in right shoulder (principal); J45.909 Unspecified asthma, uncomplicated; I10 Essential (primary) hypertension; Z87.891 Personal history of nicotine dependence; Z79.899 Other long term (current) drug therapy
CPT/HCPCS: 80053; 81003; 81015; 81025; 82550; 85025; 96361; 96374; J1885

== ENCOUNTER 2016-09-26 15:29 | Outpatient (CLI) | payer OTHER ==
[2016-09-26 15:44] LABS: #Basophils 0.1 thou/uL (0.0-0.2); #Eosinphils 0.2 thou/uL (0.0-0.7); #Lymphocytes 1.8 thou/uL (1.20-3.40); #Monocytes 0.6 thou/uL (0.11-0.59); #Neutrophils 5.4 thou/uL (1.40-6.50); %Basophils 0.8 % (0.0-1.0); %Eosinophils 2.5 % (0.0-10.0); %Monocytes 7.5 % (0.0-10.0); %Neutrophils 67.2 % (42.0-75.0); Hemoglobin 12.8 g/dL (12.0-16.0); Mean Corpuscular HGB CONC 34.5 g/dL (32.0-36.0); Mean Corpuscular Hemoglobin 30.4 pg (27.0-31.0); Mean Platelet Volume 7.9 fL (7.4-10.4); Platelet Count 262 thou/uL (130-400); RBC Distribution Width 12.1 % (11.5-14.5); Red Blood Cell (RBC) Count 4.21 mill/uL (4.20-5.40)
[2016-09-26 15:57] LABS: Anion Gap 14 mmol/L (10-20); BUN (Urea Nitrogen) 15 mg/dL (7.0-18.7); Calc. Creatinine Clearance 0 mL/min (70-130); Calcium 9.3 mg/dL (7.8-10.44); Carbon Dioxide 26 mmol/L (22-29); Chloride 106 mmol/L (98-107); Estimated GFR-MDRD Greater than 90; Glucose 89 mg/dL (70-105); Magnesium 2.3 mg/dL (1.6-2.6); Potassium 3.9 mmol/L (3.5-5.1); Sodium 142 mmol/L (136-145)
[2016-09-26 17:29] LABS: Iron 71 ug/dL (50-170)
== END 2016-09-26 15:30 | disposition home or self-care (01) ==
LOC: HPCALD 15:29
PROVIDERS: ATTEND Physician Assistant
DX: R42 Dizziness and giddiness (principal)
CPT/HCPCS: 36415; 80048; 83540; 83735; 85025

== ENCOUNTER 2016-10-04 03:35 | Emergency (ER) | payer OTHER ==
[2016-10-04 04:23] LABS: Bilirubin Negative (Negative); Blood, Urine Large (Negative); Clarity Clear (Clear); Glucose, Urine (Dipstick) Negative (Negative); Leukocyte Negative (Negative); Nitrite Negative (Negative); Protein, Urine (Dipstick) Negative (Neg-Trace); Specific Gravity, Urine 1.015 (1.005-1.030); Urobilinogen 0.2 mg/dL (0.2-1.0); pH, Urine 5.5 (5.0-9.0)
[2016-10-04 04:28] LABS: Bacteria/HPF 1+ HPF (None Seen); Squamous Epithelial None Seen HPF (0-3); Yeast-All Forms Rare HPF (None Seen)
[2016-10-04 04:31] LABS: #Basophils 0.1 thou/uL (0.0-0.2); #Eosinphils 0.3 thou/uL (0.0-0.7); #Lymphocytes 2.7 thou/uL (1.20-3.40); #Monocytes 0.6 thou/uL (0.11-0.59); #Neutrophils 4.2 thou/uL (1.40-6.50); %Basophils 0.9 % (0.0-1.0); %Eosinophils 3.3 % (0.0-10.0); %Lymphocytes 35.1 % (21.0-51.0); %Monocytes 7.5 % (0.0-10.0); %Neutrophils 53.2 % (42.0-75.0); Hemoglobin 12.7 g/dL (12.0-16.0); Mean Corpuscular HGB CONC 35.7 g/dL (32.0-36.0); Mean Corpuscular Hemoglobin 30.7 pg (27.0-31.0); Mean Platelet Volume 7.2 fL (7.4-10.4); Platelet Count 219 thou/uL (130-400); RBC Distribution Width 11.4 % (11.5-14.5); Red Blood Cell (RBC) Count 4.15 mill/uL (4.20-5.40); White Blood Cell (WBC) Count 7.8 thou/uL (4.8-10.8)
[2016-10-04 04:45] LABS: ALT (SGPT) 18 U/L (8-55); AST (SGOT) 15 U/L (5-34); Albumin 4.3 g/dL (3.5-5.0); Alkaline Phosphatase 79 U/L (40-150); Anion Gap 13 mmol/L (10-20); BUN (Urea Nitrogen) 13 mg/dL (7.0-18.7); Bilirubin, Total 0.5 mg/dL (0.2-1.2); Calc. Creatinine Clearance 0 mL/min (70-130); Calcium 9.6 mg/dL (7.8-10.44); Carbon Dioxide 25 mmol/L (22-29); Chloride 107 mmol/L (98-107); Estimated GFR-MDRD Greater than 90; Globulin 3.3 g/dL (2.4-3.5); Glucose 89 mg/dL (70-105); Protein, Total 7.6 g/dL (6.0-8.3); Sodium 141 mmol/L (136-145)
[2016-10-04] MEDS ORDERED: Iopamidol 370 76% 100 ML VIAL ONE (09:00)
--- NOTE | 2016-10-04 12:01 | CT ---
PRELIMINARY REPORT/[facility]/EMERGENCY AFTER HOURS PROCEDURE: EXAM: CT Abdomen and Pelvis With Intravenous Contrast CLINICAL HISTORY: 31 years old, female; Pain; Abdominal pain; Acute; Prior surgery; Surgery date: <1 month; Surgery ty pe: Hysterectomy 3 weeks ago; Patient HX: Patient is 3 weeks post hysterectomy. Bruising and discolo ration from surgery, post op vagional bleeding TECHNIQUE: Axial computed tomography images of the abdomen and pelvis with intravenous contrast. This CT exam w as performed using one or more of the following dose reduction techniques: automated exposure contro l, adjustment of the mA and/or kV according to patient size, and/or use of iterative reconstruction technique. CONTRAST: 90 mL of ISO 370 administered intravenously. EXAM DATE/TIME: Exam ordered 10/04/2016 4:31 AM COMPARISON: No relevant prior studies available. FINDINGS: Lower thorax: No acute findings. ABDOMEN: Liver: Unremarkable. No mass. Gallbladder and bile ducts: Unremarkable. No calcified stones. No ductal dilation. Pancreas: Unremarkable. No mass. No ductal dilation. Spleen: Unremarkable. No splenomegaly. Adrenals: Unremarkable. No mass. Kidneys and ureters: Unremarkable. No solid mass. No hydronephrosis. Stomach and bowel: Unremarkable. No obstruction. No mucosal thickening. Appendix: Normal appendix. PELVIS: Bladder: Unremarkable. No mass. Reproductive: Prior hysterectomy. Ovaries remain and are normal. ABDOMEN and PELVIS: Intraperitoneal space: Unremarkable. No free air. No significant fluid collection. Bones/joints: No acute fracture. No dislocation. Soft tissues: Unremarkable. Vasculature: Unremarkable. No abdominal aortic aneurysm. Lymph nodes: Unremarkable. No enlarged lymph nodes. IMPRESSION: No acute findings. Thank you for allowing us to participate in the care of your patient. Dictated and Authenticated by: Girma Allred MD 10/04/2016 4:55 AM Central Time ([place] \T\ [place]) FINAL REPORT CT ABDOMEN AND PELVIS WITH CONTRAST 10/04/2016 TECHNIQUE: A spiral CT of the abdomen and pelvis was done with IV contrast. Axial slices were acquired and cor onal reconstructions were done. FINDINGS: ABDOMEN: The lung bases are clear. The liver, spleen, pancreas, gallbladder, adrenal glands, kidne ys, and abdominal aorta all appear normal. The bowel is nondistended. There is no sign of obstruction or inflammatory change involving the bow el. No mesenteric adenopathy of concern is seen. No free air or free fluid is present. PELVIS: A hysterectomy has been done, with ovaries remaining. I see no abnormal postoperative find ings. There is no sign of bleeding, free fluid, or inflammatory change. No pelvic fluid collection s were appreciated. The lumbar spine is unremarkable in appearance. IMPRESSION: Unremarkable CT of the abdomen and pelvis. Report in agreement with preliminary reading by Noel. POS: HOME
== END 2016-10-04 05:10 | disposition home or self-care (01) ==
LOC: BURERS 03:35
DX: N99.820 Postprocedural hemorrhage of a genitourinary system organ or structure following a genitourinary system procedure (principal); J45.909 Unspecified asthma, uncomplicated; I10 Essential (primary) hypertension; Z87.891 Personal history of nicotine dependence; Z79.899 Other long term (current) drug therapy
CPT/HCPCS: 74177; 80053; 81003; 81015; 85025; 96360; A4216

== ENCOUNTER 2016-11-17 14:22 | Outpatient (CLI) | payer OTHER ==
--- NOTE | 2016-11-17 22:49 | RAD ---
LEFT FOOT TOE 11/17/2016 Three views show no fracture, dislocation, or other joint abnormality. IMPRESSION: No acute findings. POS: HOME
== END 2016-11-17 14:23 | disposition home or self-care (01) ==
LOC: BURRAD 14:22
PROVIDERS: ATTEND Physician Assistant
DX: M79.675 Pain in left toe(s) (principal)

== ENCOUNTER 2016-12-20 09:32 | Outpatient (CLI) | payer OTHER ==
[2016-12-20 18:22] LABS: HIV (1/2) Antibody/Antigen Non-Reactive (NonReactive); HIV 1/2 INDEX 0.09 S/CO (<1.00)
== END 2016-12-20 09:33 | disposition home or self-care (01) ==
LOC: HPCALD 09:32
PROVIDERS: ATTEND Physician Assistant
DX: Z11.4 Encounter for screening for human immunodeficiency virus [HIV] (principal); Z11.3 Encounter for screening for infections with a predominantly sexual mode of transmission; R10.84 Generalized abdominal pain
CPT/HCPCS: 36415; 86677; 86694; 86695; 86696; 87389

== ENCOUNTER 2016-12-20 17:02 | Emergency (ER) | payer OTHER ==
[2016-12-20 17:28] LABS: Bilirubin Negative (Negative); Blood, Urine Negative (Negative); Clarity Clear (Clear); Glucose, Urine (Dipstick) Negative (Negative); Leukocyte Negative (Negative); Nitrite Negative (Negative); Protein, Urine (Dipstick) Negative (Neg-Trace); Urobilinogen 0.2 mg/dL (0.2-1.0)
[2016-12-20 17:29] LABS: Specific Gravity, Urine 1.009 (1.005-1.030)
[2016-12-20] MEDS ORDERED: Bisacodyl 10 MG SUPP ONE (18:11)
[2016-12-20] MEDS ORDERED: Magnesium Citrate 300 ML BOT ONE (18:11)
--- NOTE | 2016-12-20 19:22 | RAD ---
ABDOMEN TWO VIEWS: 12/20/16 No free air is seen beneath the diaphragm. The gas pattern is normal with no sign of obstruction. No calcifications of concern were noted. The bones and soft tissue show no acute findings. The lung ba ses were clear. IMPRESSION: No significant finding. POS: HOME
== END 2016-12-20 18:21 | disposition home or self-care (01) ==
LOC: BURERS 17:02
DX: K59.00 Constipation, unspecified (principal); J45.909 Unspecified asthma, uncomplicated; I10 Essential (primary) hypertension
CPT/HCPCS: 74020; 81003

== ENCOUNTER 2016-12-22 15:39 | Outpatient (CLI) | payer OTHER | END 2016-12-22 15:40 | disposition home or self-care (01) | LOC: BURLAB 15:39 | PROVIDERS: ATTEND Physician Assistant Medical | DX: R10.31 Right lower quadrant pain (principal); K59.00 Constipation, unspecified | CPT/HCPCS: 87015; 87045; 87046; 87177; 87449; 87899 ==

== ENCOUNTER 2017-01-07 14:48 | Emergency (ER) | payer OTHER ==
[2017-01-07 15:44] LABS: Bilirubin Negative (Negative); Blood, Urine Negative (Negative); Clarity Slightly Cloudy (Clear); Glucose, Urine (Dipstick) Negative (Negative); Leukocyte Negative (Negative); Nitrite Negative (Negative); Protein, Urine (Dipstick) Negative (Neg-Trace); Urobilinogen 0.2 mg/dL (0.2-1.0); pH, Urine 5.5 (5.0-9.0)
== END 2017-01-07 15:50 | disposition home or self-care (01) ==
LOC: BURERS 14:48
DX: K82.8 Other specified diseases of gallbladder (principal); K58.9 Irritable bowel syndrome, unspecified; I10 Essential (primary) hypertension; J45.909 Unspecified asthma, uncomplicated; Z87.891 Personal history of nicotine dependence
CPT/HCPCS: 81003; 99283

== ENCOUNTER 2017-03-28 14:05 | Emergency (ER) | payer OTHER ==
[2017-03-28 14:36] LABS: Bilirubin Negative (Negative); Blood, Urine Negative (Negative); Clarity Cloudy (Clear); Glucose, Urine (Dipstick) Negative (Negative); Leukocyte Negative (Negative); Nitrite Negative (Negative); Protein, Urine (Dipstick) Negative (Neg-Trace); Urobilinogen 0.2 mg/dL (0.2-1.0)
[2017-03-28] MEDS ORDERED: Azithromycin 250 MG TAB ONE ×2 (14:57→14:58)
[2017-03-28] MEDS ORDERED: Dexamethasone 4 mg/ml Vial ONE (14:58)
== END 2017-03-28 15:05 | disposition home or self-care (01) ==
LOC: BURERS 14:05
DX: J02.9 Acute pharyngitis, unspecified (principal); I10 Essential (primary) hypertension; J45.909 Unspecified asthma, uncomplicated; Z79.899 Other long term (current) drug therapy
CPT/HCPCS: 81003; 87086; 99283; J1100

== ENCOUNTER 2022-01-23 08:25 | Emergency (ER) | payer OTHER ==
[2022-01-23] MEDS ORDERED: Dexamethasone 4 mg/ml Vial ONE (09:47)
[2022-01-23] MEDS ORDERED: diphenhydrAMINE 25 MG CAP ONE (09:47)
[2022-01-23] MEDS ORDERED: Dexamethasone 10 MG/ML VIAL ONE (09:47)
[2022-01-23] MEDS ORDERED: diphenhydrAMINE 12.5 MG/5 ML UDCUP ONE (09:48)
[2022-01-23] MEDS ORDERED: Azithromycin 250 MG TAB ONE (09:54)
== END 2022-01-23 09:55 | disposition home or self-care (01) ==
LOC: BURERS 08:25
DX: J02.0 Streptococcal pharyngitis (principal); I10 Essential (primary) hypertension; K21.9 Gastro-esophageal reflux disease without esophagitis; Z79.899 Other long term (current) drug therapy
CPT/HCPCS: 87430; 99283; J1100; Q0163

== ENCOUNTER 2022-06-14 15:09 | Emergency (ER) | payer OTHER ==
[2022-06-14] MEDS ORDERED: Doxycycline 100 MG CAP ONE (15:52)
[2022-06-14] MEDS ORDERED: predniSONE 20 MG TAB ONE (15:52)
== END 2022-06-14 15:58 | disposition home or self-care (01) ==
LOC: BURERS 15:09
DX: J22 Unspecified acute lower respiratory infection (principal); I10 Essential (primary) hypertension; J45.909 Unspecified asthma, uncomplicated; Z79.899 Other long term (current) drug therapy; Z87.891 Personal history of nicotine dependence
CPT/HCPCS: 71045; J7512

== ENCOUNTER 2023-12-07 13:58 | Emergency (ER) | payer BC ==
[2023-12-07 14:34] LABS: Bilirubin Negative (Negative); Blood, Urine Negative (Negative); Clarity Clear (Clear); Glucose, Urine (Dipstick) Negative (Negative); Ketone, Urine Negative (Negative); Leukocyte Negative (Negative); Nitrite Negative (Negative); Protein, Urine (Dipstick) Negative (Neg-Trace); Specific Gravity, Urine 1.015 (1.005-1.030); Urobilinogen 0.2 mg/dL (Less than 2)
[2023-12-07 14:45] LABS: Bacteria/HPF 2+ HPF (None Seen); CAUTI Indications for Culture Dysuria,urgency,freq; RBC/HPF None Seen HPF (0-3); Squamous Epithelial 0-3 HPF (0-3); WBC/HPF 0-3 HPF (0-3)
[2023-12-07 14:46] LABS: Urine Culture Reflex No No
[2023-12-07] MEDS ORDERED: Ibuprofen 800 MG TAB ONE (14:58)
== END 2023-12-07 15:19 | disposition home or self-care (01) ==
LOC: BURERS 13:58
DX: S80.211A Abrasion, right knee, initial encounter (principal); B34.9 Viral infection, unspecified; I10 Essential (primary) hypertension; W19.XXXA Unspecified fall, initial encounter; Z87.891 Personal history of nicotine dependence
CPT/HCPCS: 81001; 87081; 87430; 87804; 99284

== ENCOUNTER 2023-12-12 19:51 | Emergency (ER) | payer BC ==
[2023-12-12] MEDS ORDERED: Ketorolac Tromethamine 30 MG (1 mL) VIAL ONE (20:29)
[2023-12-12] MEDS ORDERED: Dexamethasone 10 MG/ML VIAL ONE (20:29)
[2023-12-12] MEDS ORDERED: Metoclopramide HCl 10 MG TAB ONE (20:30)
== END 2023-12-12 21:10 | disposition home or self-care (01) ==
LOC: BURERS 19:51
DX: U07.1 COVID-19 (principal); J12.82 Pneumonia due to coronavirus disease 2019; I10 Essential (primary) hypertension; Z87.891 Personal history of nicotine dependence
CPT/HCPCS: 96372; 99283; J1100; J1885

== ENCOUNTER 2024-03-09 07:49 | Emergency (ER) | payer BC ==
[2024-03-09 08:42] LABS: #Basophils 0.1 thou/uL (0.0-0.2); #Eosinophils 0.3 thou/uL (0.0-0.7); #Lymphocytes 2.2 thou/uL (1.20-3.40); #Monocytes 0.7 thou/uL (0.11-0.59); #Neutrophils 5.8 thou/uL (1.40-6.50); %Basophils 1.2 % (0.0-1.0); %Eosinophils 3.6 % (0.0-10.0); %Lymphocytes 24.7 % (21.0-51.0); %Monocytes 7.2 % (0.0-10.0); %Neutrophils 63.3 % (42.0-75.0); Mean Corpuscular HGB CONC 35.2 g/dL (32.0-36.0); Mean Corpuscular Volume 85.5 fl (78.0-98.0); Mean Platelet Volume 6.5 fL (7.4-10.4); Platelet Count 264 10x3/uL (130-400); RBC Distribution Width 10.2 % (11.5-14.5); Red Blood Cell (RBC) Count 4.33 mill/uL (4.20-5.40); White Blood Cell (WBC) Count 9.1 10x3/uL (4.8-10.8)
[2024-03-09 08:49] LABS: Bilirubin Negative (Negative); Blood, Urine Negative (Negative); Clarity Clear (Clear); Glucose, Urine (Dipstick) Negative (Negative); Ketone, Urine Negative (Negative); Leukocyte Negative (Negative); Nitrite Negative (Negative); Protein, Urine (Dipstick) Negative (Neg-Trace); Specific Gravity, Urine 1.015 (1.005-1.030); Urobilinogen 0.2 mg/dL (Less than 2)
[2024-03-09 08:59] LABS: ALT (SGPT) 23 U/L (8-55); AST (SGOT) 14 U/L (5-34); Albumin 4.2 g/dL (3.5-5.0); Alkaline Phosphatase 71 U/L (40-110); Anion Gap 14 mmol/L (10-20); BUN (Urea Nitrogen) 10 mg/dL (7.0-18.7); Bilirubin, Total 0.6 mg/dL (0.2-1.2); Calc. Creatinine Clearance 0 mL/min (70-130); Calcium 9.9 mg/dL (7.8-10.44); Carbon Dioxide 26 mmol/L (22-29); Chloride 103 mmol/L (98-107); Estimated GFR 115; Globulin 3.2 g/dL (2.4-3.5); Glucose 94 mg/dL (70-105); Lipase 15 U/L (8-78); Potassium 3.9 mmol/L (3.5-5.1); Protein, Total 7.4 g/dL (6.0-8.3); Sodium 139 mmol/L (136-145); Troponin I Less than 0.010 ng/mL (< 0.028)
[2024-03-09 09:04] LABS: Bacteria/HPF None Seen HPF (None Seen); CAUTI Indications for Culture Dysuria,urgency,freq; RBC/HPF None Seen HPF (0-3); Squamous Epithelial 0-3 HPF (0-3); WBC/HPF None Seen HPF (0-3)
[2024-03-09 09:05] LABS: Urine Culture Reflex No No
[2024-03-09] MEDS ORDERED: Promethazine HCl 25 MG/ML VIAL ONE (09:14)
== END 2024-03-09 09:25 | disposition home or self-care (01) ==
LOC: BURERS 07:49
DX: K29.70 Gastritis, unspecified, without bleeding (principal); K20.90 Esophagitis, unspecified without bleeding; I10 Essential (primary) hypertension; Z79.899 Other long term (current) drug therapy
CPT/HCPCS: 80053; 81001; 83690; 84484; 85025; 93005; 96374; 96375; J2550